=== PATIENT | male | born 1970 | race Caucasian/White ===

== ENCOUNTER 2022-08-29 15:10 | Outpatient (CLI) | payer BC | END 2022-08-29 15:11 | disposition home or self-care (01) | LOC: CSHULT 15:10 | PROVIDERS: ATTEND Nurse Practitioner Family | DX: N50.89 Other specified disorders of the male genital organs (principal); N43.3 Hydrocele, unspecified; N44.2 Benign cyst of testis | CPT/HCPCS: 76870; 93976 ==